=== PATIENT | female | born 1995 | race Caucasian/White ===

== ENCOUNTER 2019-06-17 11:34 | Emergency (ER) | payer BC ==
[2019-06-17 11:53] VITALS: BP 145/94
--- NOTE | 2019-06-17 12:06 | ED ---
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 Pt notes hx of depression and anxiety. Medications reviewed. Allergies noted. - History of Current Complaint Stated Complaint: R THUMB LAC PER PT Time Seen by Provider: 06/17/19 11:54 Hx Obtained From: Patient Mechanism of Injury: Sharp/Blunt Trauma Onset/Duration: Still Present Current Severity: None Pain Intensity: 0 Pain Scale Used: 0-10 Numeric Associated Signs & Symptoms: Negative PMH/Surg Hx/FS Hx/Imm Hx Sensory History: Denies: Hx Legally Blind, Hx Deafness Opthamlomology History: Denies: Hx Legally Blind EENT History: Denies: Hx Deafness Infectious Disease History: No Infectious Disease History: Denies: Traveled Outside the [place] in Last 30 Days - Family History Known Family History: Negative: Blood Disorder - Social History Occupation: Student Alcohol Use: Occasionally Hx Substance Use: No Substance Use Type: Reports: None Hx Tobacco Use: No Review of Systems Negative: Fever - vitals show temp at 97.5F Positive: Other - small laceration All Other Systems Reviewed And Are Negative: Yes Physical Exam - Summary Physical Exam Summary: Constitutional: Well-developed, Well-nourished, Alert. (-) Distressed Skin: Warm, Dry, Right thumb with tip of finger sliced off, small amount of oozing blood and full ROM HENT: Normocephalic; Atraumatic Eyes: Conjunctiva normal Neck: Musculoskeletal ROM normal neck. (-) JVD, (-) Stridor, (-) Tracheal deviation Cardio: Rhythm regular, rate normal, Heart sounds normal; Intact distal pulses; Radial pulses are 2+ and symmetric. (-) Murmur Pulmonary/Chest wall: Effort normal. (-) Respiratory distress, (-) Wheezes, (-) Rales Abd: Soft, (-) tenderness, (-) Distension, (-) Guarding, (-) Rebound Musculoskeletal: (-) Edema, Good pulses bilaterally in radius, No calf tenderness, No venous cords, No pain with dorsiflexion of foot. Lymph: (-) Cervical adenopathy Neuro: Alert, Oriented x3 Psych: Mood and affect Normal Triage Information Reviewed: Yes Vital Signs On Initial Exam: Initial Vitals Temp Pulse Resp BP Pulse Ox 97.5 F 88 16 145/94 97 06/17/19 11:49 06/17/19 11:49 06/17/19 11:49 06/17/19 11:49 06/17/19 11:49 Vital Signs Reviewed: Yes Procedures - Sedation Patient Received Moderate/Deep Sedation with Procedure: No Diagnostics - Vital Signs Vital Signs Temp Pulse Resp BP Pulse Ox 06/17/19 11:49 97.5 F 88 16 145/94 97 - Laboratory Lab Statement: Any lab studies that have been ordered have been reviewed, and results considered in the medical decision making process. Laceration Repair Course/Dx - Course Course Of Treatment: Patient is here with a small laceration to her distal thumb. Patient has small amount of bleeding with no suturable laceration. Patient had a pressure dressing applied and was discharged. - Clinical Impression Provider Diagnoses: Thumb injury Discharge ED - Sign-Out/Discharge Documenting (check all that apply): Patient Departure - dc - Discharge Plan Condition: Stable Disposition: HOME Patient Education Materials: Laceration (ED) Referrals: [facility] [Primary Care Provider] - Additional Instructions: PLEASE RETURN TO EMERGENCY DEPARTMENT FOR ANY NEW OR WORSENING SYMPTOMS. Remove press dressing in 1 hour. If you continue to bleed apply pressure and run your thumb under cold water. Keep your wound above your heart. - Billing Disposition and Condition Condition: STABLE Disposition: Home - Attestation Statements Document Initiated by Arturo: Yes Documenting Scribe: Vic Stoddard Provider For Whom Arturo is Documenting (Include Credential): Eduar Darden MD Scribe Attestation: Vic Lemus, scribed for Eduar Darden MD on 06/17/19 at 1801. Scribe Documentation Reviewed: Yes Provider Attestation: The documentation as recorded by the Vic montilla accurately reflects the service I personally performed and the decisions made by me, Eduar Darden MD Status of Scribe Document: Viewed
--- OUTSIDE RECORDS SUMMARY | 2019-06-17 12:14 | XMS REPORT ---
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 75071068 uteri ALLERGIES No Information ENCOUNTERS Encounter Location Date Diagnosis [facility] [address] Mar, OBGYN [place], [place] [id number] [facility] 103 Dec, OBGYN [place], [place] [id number] [facility] 103 August, [place]YN [place] [id number] [facility] [address] August, [place]YN [place], [place] [id number] [facility] [address] [facility] August, Encounter for [address] [place], gynecological examination [place] [id number] (general) (routine) without abnormal findings Z01.419 ; Excessive and frequent menstruation with irregular cycle N92.1 and Subacute and chronic vaginitis N76.1 [facility] [address] [facility] Apr, Polyp of corpus uteri [address] [place], N84.0 and Excessive [place] [id number] frequent menstruation with irregular cycle N92.1 [facility] 103 Mar, Polyp of corpus uteri OBGYN [facility], N84.[place] [id number] [facility] 103 Feb, Polyp of corpus uteri OBGYN [facility], [place] [id number] [place] [facility] [address] [place] [address] Feb, [address] [place], [place] [id number] [facility] 103 Nov, Polyp of corpus uteri OBGYN [facility], N84.0 and Excessive and [place] [id number] frequent menstruation with irregular cycle N92.1 [facility] [address] Nov, Polyp of corpus uteri [place], [place] [id number] N84.0 and Excessive and frequent menstruation with irregular cycle N92.1 [facility] [address] Nov, OBGYN [place], [place] [id number] [place] [facility] [address] [place] [address] Nov, Other specified abnormal [address] [place], uterine and vaginal [place] [id number] bleeding N93.8 ; Body mass index (BMI) 35.0-35.9, adult Z68.35 and Polyp of corpus uteri N84.0 [place] [facility] [address] [facility] Oct, Other specified abnormal [address] [place], uterine and vaginal [place] [id number] bleeding N93.8 [facility] 103 Oct, Other specified abnormal OBGYN [facility], uterine and vaginal [place] [id number] bleeding N93.8 [facility] 103 Oct, Other specified abnormal OBGYN [facility], uterine and vaginal [place] [id number] bleeding N93.8 [facility] 103 Oct, OBGYN [place], [place] [id number] [facility] 103 Sep, OBGYN [place] [id number] [facility] [address] [facility] Sep, Other specified abnormal [address] [place], uterine and vaginal [place] [id number] bleeding N93.8 and Body mass index (BMI) 35.0-35.9, adult Z68.35 IMMUNIZATIONS No Known Immunizations SOCIAL HISTORY Never Assessed REASON FOR REFERRAL FUNCTIONAL STATUS PLAN OF CARE VITAL SIGNS MEDICATIONS Unknown Medications PROCEDURES No Known procedures RESULTS No Results REASON FOR VISIT annual due 2019 Insurance Providers [facility] Member Patient Patient Patient Patient Patient Subscriber Subscriber Subscriber Group Insurance Plan Plan Plan Plan ID Relationship Address Phone Name Date of ID Name Date of No Type Insurance Insurance Insurance Coverage to Subscriber Address Phone Name Dates Puja [phone] Nir Roberson [id number] Blue [id number] [address] Cross/[place]rick [place] Cross/Blue Shield [id number] Shield MEDICAL (GENERAL) HISTORY Type Description Date Medical History Anxiety/Depression Surgical History adenoidectomy Surgical History deviated septum Surgical History US guided hysteroscopy, D&C, polypectomy, excision 11/23/17 endometrial mass
--- OUTSIDE RECORDS SUMMARY | 2019-06-17 12:14 | XMS REPORT ---
:[address] 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 70291154 uteri ALLERGIES No Information ENCOUNTERS Encounter Location Date Diagnosis [facility] [address] Mar, OBGYN [place], [place] [id number] [facility] 103 Dec, OBGYN [place], [place] [id number] [facility] 103 August, [place]BG[place] [id number] [facility] 103 August, [place] [id number] [facility] [address] [facility] August, Encounter for [address] [place], gynecological examination [place] [id number] (general) (routine) without abnormal findings Z01.419 ; Excessive and frequent menstruation with irregular cycle N92.1 and Subacute and chronic vaginitis N76.1 [facility] [address] [facility] Apr, Polyp of corpus uteri [address] [place], N84.0 and Excessive [place] [id number] frequent menstruation with irregular cycle N92.1 [facility] 103 Mar, Polyp of corpus uteri OBGYN [facility], N84.[place] [id number] [facility] 103 Feb, Polyp of corpus uteri OBGYN [facility], [place] [id number] [place] [facility] [address] [place] [address] Feb, [address] [place], [place] [id number] [facility] 103 Nov, Polyp of corpus uteri OBGYN [facility], N84.0 and Excessive and [place] [id number] frequent menstruation with irregular cycle N92.1 [facility] [address] Nov, Polyp of corpus uteri [place], [place] [id number] N84.0 and Excessive and frequent menstruation with irregular cycle N92.1 [facility] 103 Nov, OBGYN [place], [place] [id number] [place] [facility] [address] [place] [address] Nov, Other specified abnormal [address] [place], uterine and vaginal [place] [id number] bleeding N93.8 ; Body mass index (BMI) 35.0-35.9, adult Z68.35 and Polyp of corpus uteri N84.0 [place] [facility] [address] [facility] Oct, Other specified abnormal [address] [place], uterine and vaginal [place] [id number] bleeding N93.8 [facility] 103 Oct, Other specified abnormal OBGYN [facility], uterine and vaginal [place] [id number] bleeding N93.8 [facility] 103 Oct, Other specified abnormal OBGYN [facility], uterine and vaginal [place] [id number] bleeding N93.8 [facility] 103 Oct, OBGYN [place] [id number] [facility] 103 Sep, OBGYN [place] [id number] [facility] [address] [facility] Sep, Other specified abnormal [address] [place], uterine and vaginal [place] [id number] bleeding N93.8 and Body mass index (BMI) 35.0-35.9, adult Z68.35 IMMUNIZATIONS No Known Immunizations SOCIAL HISTORY Never Assessed REASON FOR REFERRAL FUNCTIONAL STATUS PLAN OF CARE VITAL SIGNS MEDICATIONS Unknown Medications PROCEDURES No Known procedures RESULTS No Results REASON FOR VISIT CAll november 2018 for pill check Insurance Providers [facility] Member Patient Patient Patient Patient Patient Subscriber Subscriber Subscriber Group Insurance Plan Plan Plan Plan ID Relationship Address Phone Name Date of ID Name Date of No Type Insurance Insurance Insurance Coverage to Subscriber Address Phone Name Dates Puja [phone] Nir Roberson [id number] Blue [id number] [address] Cross/[place]rick [place] Cross/Blue Shield [id number] Shield MEDICAL (GENERAL) HISTORY Type Description Date Medical History Anxiety/Depression Surgical History adenoidectomy Surgical History deviated septum Surgical History US guided hysteroscopy, D&C, polypectomy, excision 11/23/17 endometrial mass
--- OUTSIDE RECORDS SUMMARY | 2019-06-17 12:14 | XMS REPORT ---
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 08494897 uteri ALLERGIES No Information ENCOUNTERS Encounter Location Date Diagnosis [facility] [address] Mar, OBGYN [place], [place] [id number] [facility] 103 Dec, OBGYN [place], [place] [id number] [facility] 103 August, [place]BG[place] [id number] [facility] 103 August, [place] [id number] [facility] [address] [facility] August, Encounter for [address] [place], gynecological examination [place] [id number] (general) (routine) without abnormal findings Z01.419 ; Excessive and frequent menstruation with irregular cycle N92.1 and Subacute and chronic vaginitis N76.1 [facility] [address] [facility] Apr, Polyp of corpus uteri [address] [place], N84.0 and Excessive [place] [id number] frequent menstruation with irregular cycle N92.1 [place] [facility] 103 Mar, Polyp of corpus uteri OBGYN [facility], [place] [id number] [facility] 103 Feb, Polyp of corpus uteri OBGYN [facility], [place]84.0 [place] [id number] [place] [facility] [address] [place] [address] Feb, [address] [place], [place] [id number] [facility] 103 Nov, Polyp of corpus uteri OBGYN [facility], N84.0 and Excessive [place] [id number] frequent menstruation with irregular cycle N92.1 [facility] [address] Nov, Polyp of corpus uteri [place], [place] [id number] N84.0 and Excessive and frequent menstruation with irregular cycle N92.1 [facility] 103 Nov, OBGYN [place], [place] [id number] [place] [address] [place] [address] Nov, [address] specified abnormal [address] [place], uterine and vaginal [place] [id number] bleeding N93.8 ; Body mass index (BMI) 35.0-35.9, adult Z68.35 and Polyp of corpus uteri N84.0 [place] [facility] [address] [facility] Oct, Other specified abnormal [address] [place], uterine and vaginal [place] [id number] bleeding N93.8 [place] 103 Oct, Other specified abnormal OBGYN [facility], uterine and vaginal [place] [id number] bleeding N93.8 [place] 103 Oct, Other specified abnormal OBGYN [facility], uterine and vaginal [place] [id number] bleeding N93.8 [place] 103 Oct, OBGYN [place], [place] [id number] [facility] 103 Sep, OBGYN [place], [place] [id number] [facility] [address] [facility] Sep, Other specified abnormal [address] [place], uterine and vaginal [place] [id number] bleeding N93.8 and Body mass index (BMI) 35.0-35.9, adult Z68.35 IMMUNIZATIONS No Known Immunizations SOCIAL HISTORY Never Assessed REASON FOR REFERRAL FUNCTIONAL STATUS PLAN OF CARE VITAL SIGNS MEDICATIONS Unknown Medications PROCEDURES No Known procedures RESULTS No Results REASON FOR VISIT Refill RX Insurance Providers [facility] Member Patient Patient Patient Patient Patient Subscriber Subscriber Subscriber Group Insurance Plan Plan Plan Plan ID Relationship Address Phone Name Date of ID Name Date of No Type Insurance Insurance Insurance Coverage to Subscriber Address Phone Name Dates [facility] [phone] Nir Roberson [id number] Blue [id number] [address] Cross/[place]rick Crystal [place] Cross/Blue Shield [id number] Shield MEDICAL (GENERAL) HISTORY Type Description Date Medical History Anxiety/Depression Surgical History adenoidectomy Surgical History deviated septum Surgical History US guided hysteroscopy, D&C, polypectomy, excision 11/23/17 endometrial mass
== END 2019-06-17 12:33 | disposition home or self-care (01) ==
LOC: ED 11:34
DX: S61.011A Laceration without foreign body of right thumb without damage to nail, initial encounter (principal); W27.8XXA Contact with other nonpowered hand tool, initial encounter; Y92.9 Unspecified place or not applicable
CPT/HCPCS: 99281